=== PATIENT | male | born 1960 | race Caucasian/White ===

== ENCOUNTER 2016-10-29 18:42 | Emergency (ER) | payer BC ==
[~2016-10-29] VITALS: Ht 175.3 cm; Wt 100.4 kg
[2016-10-29 18:42] VITALS: Ht 175.3 cm; Wt 100.4 kg
--- OUTSIDE RECORDS SUMMARY | 2016-10-29 18:46 | XMS REPORT ---
Author Author Calin Mendoza Organization [employer] Address Unknown Phone Unavailable Care Team Providers Care Proposal Rep Name Role Phone Calin Mendoza CP Unavailable Allergies No Known Allergies Problems Problem Type Condition Code Onset Dates Condition Status Problem Other and unspecified hyperlipidemia E78.5 Active Medications No Known Medications Results No Known Results Summary Purpose [employer] Submission
--- OUTSIDE RECORDS SUMMARY | 2016-10-29 18:46 | XMS REPORT ---
Author Author Calin Mendoza Organization [employer] Address Unknown Phone Unavailable Care Team Providers Care Airplane Mechanic Name Role Phone Calin Mendoza CP Unavailable Allergies, Adverse Reactions, Alerts Substance Reaction Event Type CONTRAST MEDIA ( IODINE) Info Not Available Drug Allergy Problems Problem Type Condition Code Onset Dates Condition Status Assessment Right knee pain M25.561 Active Assessment Hypogonadism in male E29.1 Active Problem Other and unspecified hyperlipidemia E78.5 Active Assessment Hyperlipidemia E78.5 Active Assessment Arthritis of both knees M19.90 Active Medications Medication Code System Code Instructions Start Date End Date Status Dosage Livalo [facility] [address]-34 2 MG Orally Once a day December 17, 2011 1/2 Tablet Multivitamins [facility] [address] Orally as directed Aspir-81 [facility] [address]-84 81 MG Orally Once a day 1 tablet Procedures Procedure Coding System Code Date TESTOSTERONE, TOTAL CPT-4 45821 October 23, 2015 TESTOSTERONE Free CPT-4 94737 October 23, 2015 KNEE 3 VIEW CPT-4 89672 October 23, 2015 OFFICE VISITEST PT CPT-4 16399 October 23, 2015 LIPID PROFILE CPT-4 17314 October 23, 2015 Vital Signs Date/Time: October 23, 2015 Blood Pressure Systolic 118 mm Hg Height 69 in Weight 232.2 lbs BMI 34.29 Index Blood Pressure Diastolic 82 mm Hg Results Name Result Date Reference Range Unit Abnormality Flag X ray : Knee, right 3 views Summary Purpose [employer] Submission
--- OUTSIDE RECORDS SUMMARY | 2016-10-29 18:46 | XMS REPORT ---
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 660180346 Problem Other and unspecified hyperlipidemia E78.5 Active 63408682 Assessment Testicular hypofunction E29.1 Jul, Active 597544737 ALLERGIES Unknown Allergies SOCIAL HISTORY No smoking Hx information available PLAN OF CARE Activity Details Pending Test TESTOSTERONE 4 Weeks,Reason: VITAL SIGNS MEDICATIONS Unknown Medications RESULTS Name Result Date Reference Range TESTOSTERONE 2016-07-15 TESTOSTERONE 1.01 2.80-8.00 PROCEDURES Procedure Date Ordered Related Diagnosis Body Site TESTOSTERONE, TOTAL Jul 15, 2016 Depo-Testosterone Jul 15, 2016 Administration Fee /THER/PROPH/DIAG INJ, SC/IM Jul 15, 2016 IMMUNIZATIONS Vaccine Route Administration Date Status Depo-Testosterone ID Intradermal 1: 00, 15:1 Administered
--- OUTSIDE RECORDS SUMMARY | 2016-10-29 18:46 | XMS REPORT ---
Author Author Calin Mendoza Organization [employer] Address Unknown Phone Unavailable Care Team Providers Care Spring Former Machine Name Role Phone Calin Mendoza CP Unavailable Allergies No Known Allergies Problems Problem Type Condition Code Onset Dates Condition Status Problem Other and unspecified hyperlipidemia E78.5 Active Medications Medication Code System Code Instructions Start Date End Date Status Dosage Livalo [facility] [address]-55 2 MG Orally Once a day December 17, 2011 1 tablet Results No Known Results Summary Purpose [employer] Submission
--- OUTSIDE RECORDS SUMMARY | 2016-10-29 18:46 | XMS REPORT ---
Author Author Calin Mendoza Organization [employer] Address Unknown Phone Unavailable Care Team Providers Care Hanging Flags Decorator Name Role Phone Calin Mendoza CP Unavailable Allergies No Known Allergies Problems Problem Type Condition Code Onset Dates Condition Status Problem Other and unspecified hyperlipidemia E78.5 Active Medications No Known Medications Results No Known Results Summary Purpose [employer] Submission
--- OUTSIDE RECORDS SUMMARY | 2016-10-29 18:46 | XMS REPORT ---
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
--- OUTSIDE RECORDS SUMMARY | 2016-10-29 18:46 | XMS REPORT ---
Author Author Calin Mendoza Organization [employer] Address Unknown Phone Unavailable Care Team Providers Care Tray Setter Name Role Phone Calin Mendoza CP Unavailable Allergies, Adverse Reactions, Alerts Substance Reaction Event Type CONTRAST MEDIA ( IODINE) Info Not Available Drug Allergy Problems Problem Type Condition Code Onset Dates Condition Status Assessment Encounter for general adult medical examination without abnormal findings Z00.00 Active Problem Other and unspecified hyperlipidemia E78.5 Active Medications Medication Code System Code Instructions Start Date End Date Status Dosage Livalo [facility] [address]-14 2 MG Orally Once a day December 17, 2011 half tablet Aspir-81 [facility] [address]-68 81 MG Orally Once a day 1 tablet Multivitamins [facility] [address] Orally as directed Procedures Procedure Coding System Code Date PREV MED SEREST 40 CPT-4 15696 May 11, 2015 CBC CPT-4 73416 May 11, 2015 URINALYSIS CPT-4 70510 May 11, 2015 LIPID PROFILE CPT-4 21598 May 11, 2015 COMP PROFILE CPT-4 14493 May 11, 2015 PSA,TOTAL CPT-4 91057 May 11, 2015 TSH CPT-4 81714 May 11, 2015 Vital Signs Date/Time: May 11, 2015 Blood Pressure Systolic 114 mm Hg Height 69 in Weight 221.2 lbs BMI 32.66 Index Oximetry 100 % Cardiac Monitoring Heart Rate 76 /min Blood Pressure Diastolic 76 mm Hg Results Name Result Date Reference Range Unit Abnormality Flag CBC Summary Purpose [employer]Works Submission
--- OUTSIDE RECORDS SUMMARY | 2016-10-29 18:46 | XMS REPORT ---
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
--- OUTSIDE RECORDS SUMMARY | 2016-10-29 18:46 | XMS REPORT ---
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
--- OUTSIDE RECORDS SUMMARY | 2016-10-29 18:46 | XMS REPORT ---
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
--- OUTSIDE RECORDS SUMMARY | 2016-10-29 18:46 | XMS REPORT ---
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
--- OUTSIDE RECORDS SUMMARY | 2016-10-29 18:46 | XMS REPORT ---
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
--- OUTSIDE RECORDS SUMMARY | 2016-10-29 18:46 | XMS REPORT ---
Author Author Calin Mendoza 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 984802627 Problem Other and unspecified hyperlipidemia E78.5 Active 76531852 Problem Primary osteoarthritis of left knee M17.12 Active 501101237 Problem Hyperlipidemia E78.5 Active 53066673 ALLERGIES Substance Reaction Event Type Date Status CONTRAST MEDIA ( IODINE) Unknown Drug Allergy Sep, Active SOCIAL HISTORY No smoking Hx information available PLAN OF CARE Activity Details Pending Test CBC Pending Test COMPREHENSIVE CHEM PROFILE Pending Test LIPID PROFILE Pending Test TESTOSTERONE Pending Test MRSA SCREEN #[id number] follow up pending results,Reason: VITAL SIGNS Weight 234 lbs 2016-09-30 Height 69 in 2016-09-30 Temperature 98.5 degrees Fahrenheit 2016-09-30 Heart Rate 75 /min 2016-09-30 Oximetry 96 % 2016-09-30 BMI 34.55 kg/m2 2016-09-30 Blood pressure systolic 121 mm Hg 2016-09-30 Blood pressure diastolic 83 mm Hg 2016-09-30 MEDICATIONS Medication Instructions Dosage Frequency Start Date End Date Duration Status Osteo Bi-Flex Joint Shield - Active Meloxicam 7.5 MG Orally Once a day 2 TABLETS 24h Active Multivitamins as directed Active Livalo 2 MG Orally Once a day 1/2 Tablet 24h 12 Dec, 2011 30 day(s) Active Aspir-81 81 MG Orally Once a day 1 tablet 24h 30 day(s) Active Depo-Testosterone 200 MG/ML Intramuscular monthly 1 ml Active RESULTS No Results PROCEDURES Procedure Date Ordered Related Diagnosis Body Site CBC September 30, 2016 COMP PROFILE September 30, 2016 TESTOSTERONE, TOTAL September 30, 2016 EKG WITH INTERPRETAT September 30, 2016 Culture, Presumptive, Screening September 30, 2016 LIPID PROFILE September 30, 2016 OFFICE VISITEST PT September 30, 2016 IMMUNIZATIONS No Known Immunizations
--- OUTSIDE RECORDS SUMMARY | 2016-10-29 18:46 | XMS REPORT ---
Author Author Calin Mendoza Organization [employer] Address Unknown Phone Unavailable Care Team Providers Care Search Engine Marketing Specialist Name Role Phone Calin Mendoza CP Unavailable Allergies No Known Allergies Problems Problem Type Condition Code Onset Dates Condition Status Problem Other and unspecified hyperlipidemia E78.5 Active Medications Medication Code System Code Instructions Start Date End Date Status Dosage Livalo [facility] [address]-33 2 MG Orally Once a day December 17, 2011 half tablet Results No Known Results Summary Purpose eClinicalWorks Submission
--- OUTSIDE RECORDS SUMMARY | 2016-10-29 18:46 | XMS REPORT ---
Author Author Calin Mendoza Organization [employer] Address Unknown Phone Unavailable Care Team Providers Care Practical Nursing Faculty Name Role Phone Calin Mendoza CP Unavailable Allergies No Known Allergies Problems Problem Type Condition Code Onset Dates Condition Status Problem Other and unspecified hyperlipidemia E78.5 Active Medications No Known Medications Results No Known Results Summary Purpose [employer]ClinicalWorks Submission
--- OUTSIDE RECORDS SUMMARY | 2016-10-29 18:46 | XMS REPORT ---
Author Author Calin Mendoza 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
[2016-10-29] MEDS ORDERED: OXYC10TA57 PO (19:13)
[2016-10-29] MEDS ORDERED: TRAM50TA4 PO (19:13)
[2016-10-29] MEDS ORDERED: PITA2TAB PO (19:13)
[2016-10-29] MEDS ORDERED: ASPI-557 PO (19:16)
[2016-10-29] MEDS ORDERED: OXYC1TAB11 PO (19:16)
[2016-10-29] MEDS ORDERED: SENN-156 PO (19:16)
[2016-10-29] MEDS ORDERED: BISA-72 PO (19:16)
[2016-10-29] MEDS ORDERED: NORMAL SALINE 1,000 ML IV ONE (19:35)
--- NOTE | 2016-10-29 19:44 | ERPDOC ---
Departure Disposition Decision Date: Oct 29, 2016 Disposition Decision Time: 21:23 Disposition: 01 DISCHARGED HOME, SELF-CARE Impression Impression Impression: Primary Impression: Deep inguinal pain, left Additional Impression: Pulmonary nodules Severity: Moderate Condition: Improved Seen By: Physician only Referrals: YOUR PHYSICIAN 3 Days Patient Instructions: Inguinal Hernia (ED), Pulmonary Nodules (ED) Problems/Meds/Labs Reviewed?: Yes Medications reviewed and manag: Yes Additional Instructions: Your pain is related to your chronic, post-operative pain from your hernia repair. Keep taking your pain meds as prescribed. If your symptoms get worse, are accompanied by a fever, or cause you significant pain, even while at rest, come back immediately. Follow up with your doctor later this week to look at your pulmonary nodules further. Follow up care ordered?: Yes Mental Status: Alert, Oriented HPI - Abdominal Pain General Chief Complaint: Acute Medical Problem Stated Complaint: PAIN ON RT SIDE Time Seen by Provider: 19:05 Source: patient, family History/Exam Limitations: no limitations HPI - Abdominal Pain Initial Comments 56yo man presents to the ER tonight for RLQ pain. Pt had knee replacement on the right 5 days ago and has been performing PT; this has irritated the pain. Pt had b/l inguinal hernia repair 3yrs ago. Left has been asymptomatic, but right has given pt pain off/on ever since. Pain starts along his inguinal fold, laterally and radiates into pts testicle/scrotum. Occurred At: home Onset: Gradual, Getting worse Duration: 1 week Pain Scale: Now & Worst: 5/10 Quality: sharpness Location: RLQ Radiation: groin Activities at Onset: activity Modifying Factors: IMPROVES WITH: analgesics, lying down, rest, WORSE WITH: exercise, movement, palpation Associated Symptoms: nausea/vomiting Hx of Similar Symptoms: Yes Allergies: Coded Allergies: Iodinated Contrast Media - Oral and (Verified Allergy, Severe, ANAPHYLACTIC SHOCK, 10/29/16) Uncoded Allergies: PAIN MEDS (Adverse Reaction, Intermediate, CONSTIPATION, 10/29/16) Past History Past Medical History Metabolic: hypercholesterolemia Cardiac: CAD GI: constipation Musculoskeletal: osteoarthritis Surgical History General: hernia Joint: knee Review of Systems GI Upper Abdomen: nausea, vomiting, DENIES: dysphagia, food intolerances, heartburn/indigestion, hematemesis, pain Lower Abdomen: constipation, pain, DENIES: blood in stool, kamran-colored stools , diarrhea, melena, painful BM General: pain, DENIES: burning, dysuria, frequency, urgency All other Systems All Other Systems: Reviewed and Negative Physical Exam General General Nourishment: well nourished, well developed, appears stated age, no acute distress, adult, obese General Body Habitus: well groomed Vitals and Pain First Documented Vital Signs Date Time Temp Pulse Resp B/P Pulse Ox O2 Delivery O2 Flow Rate FiO2 10/29/16 18:42 98.1 113 20 144/97 96 Room Air Weight: Kilograms: 100.400 Height (feet): 5 Height (inches): 9.00 Triage Pain Scale: RN VS reviewed by Provider: Yes Normal Exams: Head: Normocephalic w/o trauma Eyes: Pupils are PERRLA w/ EOMI, No scleral icterus, irritation ENMT: No facial trauma, nasal exudates, pharyngeal erythema Neck: Full range of motion, without adenopathy Lymphatic: No lymphadenopathy Musculoskeletal: No tenderness, or deformity noted, good range of motion Integumentary: No rashes, hives, or bruising noted Neurologic: Patient is alert, and oriented Psychiatric: Patient exhibits, appropriate attention Respiratory (brief) Respiratory: FOUND: clear all ashraf, equal bilaterally, symmetrical, NOT FOUND : rales, wheezes Cardiovascular (brief) Cardiac: FOUND: regular rate, regular rhythm, NOT FOUND: click, gallop, murmur , pedal edema, peripheral edema, rub Capillary Refill: <2 sec Pulses: all distal extremities, equal, strong Abdomen (brief) Abdominal Brief: FOUND: bowel normo active x4, soft, tender (Mildly TTP along inguinal canal; palpation reproduces radiating, stabbing pain into testicle/ scrotum.), NOT FOUND: distended, hepatosplenomegaly, pulsatile mass (brief) Male Brief: FOUND: circumcised, NOT FOUND: deformity, mass, tenderness Comments Cremasteric reflex intact Differential Diagnoses Considering: Appendicitis, Bowel Obstruction, Constipation, Gastroenteritis, GERD, Hernia, Ileus, Testicular Torsion Progress Results/Orders Orders Procedure Category Date Status Time Iv Lock (Ed Only) EDM 10/29/16 Transmitted 19:35 Nothing By Mouth (Ed EDM 10/29/16 Transmitted Only) 19:35 Cbc W/Auto LAB 10/29/16 Complete Diff-Reflex Manual 19:35 Bmp - Basic Metabolic LAB 10/29/16 Complete Panel 19:35 Normal Saline (Normal PHA 10/29/16 Complete Saline Iv) 19:35 Ondansetron Inj PHA 10/29/16 Complete (Zofran) 19:45 Lorazepam (Ativan) PHA 10/29/16 Complete 19:45 Ct Abd/Pelvis W/O CT 10/29/16 Taken Contrast 19:35 Lab Results Laboratory Tests Test 10/29/16 20:05 White Blood Count 9.0T/MM3 Red Blood Count 4.27M/MM3 Hemoglobin 12.9GM/DL Hematocrit 37.6% Mean Corpuscular Volume 88.1UM3 Mean Corpuscular Hemoglobin 30.2UUG Mean Corpuscular Hemoglobin Concent 34.3GM/DL RDW Standard Deviation 38.7FL Platelet Count 421T/MM3 Mean Platelet Volume 9.3UM3 Immature Granulocyte % (Auto) 0.4% Neutrophils (%) (Auto) 65.0% Lymphocytes (%) (Auto) 20.8% Monocytes (%) (Auto) 11.7% Eosinophils (%) (Auto) 1.8% Basophils (%) (Auto) 0.3% Absolute Immature Granulocyte (auto 0.04T/MM3 Absolute Neutrophils (auto) 5.8T/MM3 Absolute Lymphocytes (auto) 1.9T/MM3 Absolute Monocytes (auto) 1.1T/MM3 Absolute Eosinophils (auto) 0.2T/MM3 Absolute Basophils (auto) 0.0T/MM3 Turbidity < 20 Sodium Level 138MEQ/L Potassium Level 4.3MEQ/L Chloride Level 97MEQ/L Carbon Dioxide Level 28MEQ/L Anion Gap 13MEQ/L Blood Urea Nitrogen 16.0MG/DL Creatinine 0.9MG/DL Glomerular Filtration Rate Calc 87 BUN/Creatinine Ratio 18RATIO Glucose Level 127MG/DL Calculated Osmolality 269MOSM/KG Calcium Level 9.6MG/DL Icterus Index < 2 Chemistry Specimen Hemolysis < 15 Medications Current ED Medications Sodium Chloride (Normal Saline IV) 1,000 ml @ 0 mls/hr Q0M ONCE IV ; Start at 19:35; Stop 10/29/16 at 19:39; Status DC Ondansetron HCl (Zofran) 4 mg O ONCE IV ; Start 10/29/16 at 19:45; Stop at 19:46; Status DC Lorazepam (Ativan) 1 mg O ONCE IV ; Start 10/29/16 at 19:45; Stop 10/29/16 at 19:46; Status DC Progress Progress Discussed dx, prognosis, tx, and need for f/u with pt and , who voiced understanding. F/u with PCM. Consult/PCP Consult/PCP : Physician Contacted: Dr. Eaton Time Called: 21:11 Time of first response: 21:12 Type of discussion: Phone Consult/PCP Discussion Details Mildly irregular findings of appendix without elevated WBC or other findings c/ w infx unlikely to be appendicitis. Agreed that sx most likely related to chronic, post-op pain from herniorrhaphy. Give good RTC precautions and d/c to home. CT CT : CT: Abd/Pelvis no contrast Interpretation: Abnormal (Pulm nodules and mildly dilated appendix.), Reviewed Written Report CASIMIRO NESS DO Oct 29, 2016 19:44 CASIMIRO NESS DO Oct 29, 2016 19:44
[2016-10-29] MEDS ORDERED: LORAZEPAM 2 MG/ML INJECTION IV ONE (19:45)
[2016-10-29] MEDS ORDERED: ONDANSETRON 4mg/2ml INJECTION IV ONE (19:45)
--- NOTE | 2016-10-29 19:45 | NUR ---
PT REQUEST PT WISHES TO REFUSE IV AT THIS TIME. DR NESS INFORMED. LAB CONTACTED FOR DRAW.
--- NOTE | 2016-10-29 20:02 | NUR ---
FLOOR ASSOCIATE IN ROOM FOR VENIPUNCTURE.
[2016-10-29 20:11] LABS: BASOPHILS % (AUTO) 0.3 % (0-2); EOSINOPHILS # (AUTO) 0.2 T/MM3 (0-0.5); EOSINOPHILS % (AUTO) 1.8 % (0-4); HCT - HEMATOCRIT 37.6 % (41-53); HGB - HEMOGLOBIN 12.9 GM/DL (13.5-17.5); IMMATURE GRANULOCYTE # (AUTO) 0.04 T/MM3 (0.00-0.03); IMMATURE GRANULOCYTE % (AUTO) 0.4 % (0.0-0.5); LYMPHOCYTES # (AUTO) 1.9 T/MM3 (1-4.8); LYMPHOCYTES % (AUTO) 20.8 % (23-45); MEAN CORPUSCULAR HGB 30.2 UUG (26-34); MEAN CORPUSCULAR HGB CONC(MCHC 34.3 GM/DL (31-37); MEAN CORPUSCULAR VOLUME 88.1 UM3 (80-100); MEAN PLATELET VOLUME 9.3 UM3 (9.4-12.4); MONOCYTES # (AUTO) 1.1 T/MM3 (0-0.8); MONOCYTES % (AUTO) 11.7 % (0-9.0); NEUTROPHILS #(AUTO)-ABSOLUTE 5.8 T/MM3 (1.8-7.7); RED BLOOD COUNT 4.27 M/MM3 (4.50-5.90)
[2016-10-29 20:19] LABS: ANION GAP 13 MEQ/L (5-15); BUN/CREATININE RATIO 18 RATIO (6-26); CALCIUM 9.6 MG/DL (8.4-10.2); CHLORIDE 97 MEQ/L (98-107); CO2 - CARBON DIOXIDE 28 MEQ/L (22-30); CREATININE 0.9 MG/DL (0.8-1.5); GLOMERULAR FILTRATION RATE 87; GLUCOSE 127 MG/DL (75-110); POTASSIUM 4.3 MEQ/L (3.6-5); SODIUM 138 MEQ/L (134-144)
--- NOTE | 2016-10-29 20:45 | NUR ---
STATUS PT RESTING CALMLY IN BED, SIGNIFICANT OTHER AT BEDSIDE. INFORMED PT REGARDING TIME FOR RADIOLOGY READ FOR CT AND PLAN OF CARE. UNDERSTANDING VERBALIZED.
[2016-10-29 21:47] VITALS: TEMP 98.4
[2016-10-29 21:48] VITALS: BP 109/64; PULSE 80; RESP 14; O2SAT 97
--- NOTE | 2016-10-30 08:01 | DI ---
Indication: ITS.REASON: RLQ pain; PROCEDURE: CT ABD/PELVIS W/O CONTRAST: Encounter: Initial Comparison: None Technique: Axial CT images were performed through the abdomen and pelvis without intravenous contrast. Coronal and sagittal two-dimensional reformats. Automated Exposure Control and Iterative Reconstruction dose reducing techniques were utilized. Findings: 5 mm right middle lobe pulmonary nodule on image #2 which does not require specific imaging follow-up. Tiny 3 mm left lower lobe pulmonary nodule on image #14 with additional 2 mm nodule in the left lower lobe on image #17. The unenhanced contours of the liver are within normal limits. The gallbladder is unremarkable. The spleen, partially fatty replaced pancreas and adrenal glands are normal. Kidneys are normal. 3 mm stone in the right distal ureter at the ureterovesicular junction without evidence of obstruction. No abdominal or pelvic adenopathy. Bladder is normal. No free fluid. The appendix is normal. Bone windows are unremarkable. Impression: Nonobstructing 3 mm right distal ureteral stone at the ureterovesicular junction. There is a preliminary report by [facility]. The right ureteral stone is not mentioned in the preliminary report. .
== END 2016-10-29 21:47 | disposition home or self-care (01) ==
LOC: ED 18:42
DX: R10.31 Right lower quadrant pain (principal); N50.82 Scrotal pain; R11.2 Nausea with vomiting, unspecified; R91.8 Other nonspecific abnormal finding of lung field
CPT/HCPCS: 36415; 80048; 85025